=== PATIENT | female | born 1935 | race Caucasian/White ===

== ENCOUNTER 2021-02-16 11:41 | Emergency (ER) | payer MEDICARE, SELFPAY ==
--- NOTE | ~2021-02-16 | XR_ITS ---
EXAMINATION: XR chest 2V EXAM DATE: 02/16/2021 12:56 INDICATION: Fall, weakness and dizziness. TECHNIQUE: Frontal and lateral projections of the chest obtained and reviewed. There is no prior sheldon dy for comparison. FINDINGS: The lungs are clear. There are no pleural effusions. The cardiomediastinal silhouette is within normal limits. There is no pneumothorax suspected. There are mild bony degenerative changes. 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 IMPRESSION: Unremarkable chest x-ray exam. Reviewed, dictated and finalized at location A.
--- NOTE | ~2021-02-16 | CT_ITS ---
EXAMINATION: CT cervical spine wo con DATE: 02/16/2021 12:48 INDICATION: Status post fall. Neck pain. TECHNIQUE: Computed tomography (CT) of the cervical spine was performed without intravenous contrast. The dose-length product was 532 mGy-cm. Automated exposure control and iterative reconstruction tech nique were employed. COMPARISON: None FINDINGS: Vertebral body heights are maintained. There is degenerative anterolisthesis at C4-5, secon lashanda to facet hypertrophy. No acute fracture or traumatic malalignment. Odontoid process within deepthi l limits. There is advanced multilevel uncinate and facet hypertrophy. There is levocurvature of the cervical spine. There is carotid atherosclerosis. Craniovertebral junction is unremarkable. IMPRESSION: 1. No acute abnormality of the cervical spine. 2: Moderate cervical spondylosis. Reviewed, dictated and finalized at location B.
--- NOTE | ~2021-02-16 | CT_ITS ---
EXAMINATION: CT brain wo con DATE: 02/16/2021 12:48 INDICATION: Head injury. TECHNIQUE: Computed tomography (CT) of the head was performed without intravenous contrast. The mA wa s adjusted according to patient size. Iterative reconstruction technique was employed. The dose-lengt h product was 605.33 mGy-cm. COMPARISON: None FINDINGS: There is no intracranial hemorrhage, acute infarction, or abnormal intracranial mass lesion . The ventricles are normal in size. The paranasal sinuses are clear. The orbits are normal. There is a trace left mastoid effusion. IMPRESSION: 1. Normal brain. Reviewed, dictated and finalized at location A. IMPRESSION: 1. Normal brain.
--- NOTE | 2021-02-16 11:50 | ECG_ITS ---
Measurements Intervals [place] Rate: 78 P: 78 IA: 129 QRS: 13 QRSD: 93 T: 81 QT: 379 QTc: 434 Interpretive Statements SINUS RHYTHM WITH MARKED SINUS ARRHYTHMIA ATRIAL PREMATURE COMPLEX INCOMPLETE RIGHT BUNDLE BRANCH BLOCK LEFT VENTRICULAR HYPERTROPHY WITH ST-T CHANGE NONSPECIFIC ST & T-WAVE ABNORMALITY- HIGH LATERAL LEADS BASELINE ARTIFACT- II, III, AVR, AVF, V1, V3-V6 BORDERLINE ECG Electronically Signed On 02-16-2021 21:01:02 CDT by Endy Mcintosh D.O.
[2021-02-16 11:51] VITALS: BP 177/98; PULSE 76; RESP 19; TEMP 37.1; O2SAT 98
[2021-02-16 11:59] VITALS: PULSE 73
[2021-02-16 12:07] LABS: Basophils Percent Auto 0.3 % (0.2-1.2); Eosinophils Absolute Auto 0.1 K/mm3 (0-0.3); Eosinophils Percent Auto 0.7 % (0-4.4); Hematocrit 43.5 % (37.0-47.0); Hemoglobin 14.4 g/dL (12.0-15.0); Immature Granulocyte Absolute 0.03 K/mm3 (0.00-0.031); Immature Granulocyte Percent A 0.3 % (0-0.5); Lymphocytes Absolute Auto 2.08 K/mm3 (0.9-3.2); Lymphocytes Percent Auto 22.8 % (18.3-44.2); Mean Corpuscular HGB Conc 33.1 g/dl (32-36); Mean Corpuscular Hemoglobin 28.9 pg (26-34); Mean Corpuscular Volume 87.2 fl (80-100); Mean Platelet Volume 10.4 fl (7.4-10.4); Monocytes Absolute Auto 0.7 K/mm3 (0.1-0.6); Monocytes Percent Auto 7.4 % (2.6-8.5); Neutrophils Absolute Auto 6.2 K/mm3 (1.3-6.7); Neutrophils Percent Auto 68.5 % (45.5-73.1); Platelet Count Result 255 k/mm3 (150-375); Red Blood Count 4.99 M/mm3 (4.2-5.4); Red Cell Distribution Width 13.2 % (11.5-14.5); White Blood Count 9.1 K/mm3 (4.5-10.0)
[2021-02-16 12:23] LABS: Alanine Aminotransferase 22 U/L (4-35); Albumin Level 4.5 g/dL (3.5-5.1); Alkaline Phosphatase 78 U/L (38-126); Anion Gap 12 mmol/L (8-16); Aspartate Amino Transferase 46 U/L (14-36); Bilirubin,Total 1.8 mg/dL (0.2-1.3); Blood Urea Nitrogen 19 mg/dL (7-17); Calcium 10.1 mg/dL (8.4-10.2); Carbon Dioxide 25 mmol/L (22-30); Chloride 103 mmol/L (98-107); Estimated CRCL calculation 39 ml/min; Estimated Glomerular Filt Rate 47; Glucose 125 mg/dL (65-105); Sodium 140 mmol/L (137-145)
[2021-02-16 12:30] LABS: Glucose Point of Care 123 mg/dl (65-105)
[2021-02-16 12:52] LABS: Add Urine Microscopic? YES; Appearance Urine Cloudy (Clear); Bacteria Urine 4+ /hpf; Bilirubin Urine Negative (Negative); Blood Urine 1+ (Negative); Color Urine Amber (Yellow); Glucose Urine UA Negative (Negative); Ketones Urine Negative (Negative); Leukocyte Esterase Ur 2+ LEU/UL (Negative); Mucus Urine Rare /lpf; Nitrate Urine Negative (Negative); Protein Urine 2+ mg/dL (Negative); Specific Grav Ur 1.024 (1.001-1.035); Squamous Epithelial Cell Urine Many /hpf (Few); WBC Urine >75 /hpf
--- NOTE | 2021-02-16 12:52 | PC.NURSE ---
Pt to CT scan via stretcher.
--- NOTE | 2021-02-16 13:15 | ED.GENADULT ---
HPI - General Adult General Chief complaint: Weakness Stated complaint: dizzy, fall Time Seen by Provider: 02/16/21 11:58 Source: patient and family Mode of arrival: ambulatory Limitations: no limitations History of Present Illness HPI narrative: Patient is 85 years old white female presented to the ED with the chief complaint of weakness for 2 months, dizzy spells over the last 3 weeks which is triggered by head movement or body movement, spinning, associated with intermittent nausea,. Last the spell was yesterday while walking going to the bathroom, ended up on the floor, no loss of consciousness, occipital laceration, did not go to the hospital at that time. Patient lives with 2 sons, her daughter brought her to the emergency room for further evaluation. Currently patient is asymptomatic. History of hypertension, hyperlipidemia, does not take blood thinners or even aspirin. Unknown last tetanus shot. Blood pressure on arrival to the emergency room 177/98 when I went see the patient in the room was 210/107. Patient still asymptomatic. Related Data Allergies Allergy/AdvReac Type Severity Reaction Status Date / Time No Known Allergies Allergy Mild Verified 02/16/21 11:59 Review of Systems Review of Systems: Narrative: CONSTITUTIONAL: Denies fever, chills, or sweats. EYES: Denies visual changes, redness, or discharge. ENT: Denies rhinorrhea, congestion, sore throat, or otalgia. CARDIOVASCULAR: Denies chest pain, palpitations, or edema. RESPIRATORY: Denies cough or dyspnea. GASTROINTESTINAL: Denies abdominal pain, nausea, vomiting, or diarrhea. GENITOURINARY: Denies dysuria or hematuria. SKIN: Denies rash or itching. MUSCULOSKELETAL: Denies back pain, joint pain, or myalgia. NEUROLOGIC: Denies headache, numbness, or weakness. PSYCHIATRIC: Denies anxiety or depression. [facility] Past Medical History Medical History (Updated 02/16/21 @ 15:56 by Blanca Zelaya MD) Hyperglycemia Hypertension Family History Family History Father Family history of tuberculosis, Onset Age: 52 Mother Family history of kidney disease, Onset Age: 49 Social History Social History Smoking status: Never smoker Alcohol intake: never Gender identity (if verbalized by the patient): Female Exam Narrative: Exam Narrative: General appearance: Well-developed, well-nourished Skin: Normal color Head: Normocephalic,, healing occipital laceration 1 and half centimeter, not contaminated, no active bleeding Eyes: Clear conjunctiva ENT: Oropharynx normal, ears normal, nose normal Neck: Supple, nontender Chest and respiratory: Airway patent, no respiratory distress, no accessory muscle use Heart: Regular rate/rhythm Abdomen: Soft, nontender, no organomegaly, quiet bowel sounds Vascular: Normal peripheral pulses, normal capillary refill. Musculoskeletal: Normal range of motion, nontender back Neurologic: Alert and oriented ?3, [employer] is normal as tested, no gross motor deficit Course Course Emergency Course: Stable Vital Signs Vital signs: Vital Signs Temperature 37.1 C 02/16/21 11:51 Pulse Rate 76 02/16/21 11:51 Respiratory Rate 19 02/16/21 11:51 Blood Pressure 177/98 H 02/16/21 11:51 Pulse Oximetry 98 02/16/21 11:51 Temperature 37.1 C 02/16/21 11:51 Pulse Rate 65 02/16/21 15:19 Respiratory Rate 12 02/16/21 15:19 Blood Pressure 126/50 L 02/16/21 15:19 Pulse Oximetry 97 02/16/21 15:19 Medical Decision Making MDM Narrative Medical decision making narrative: Patient presents with general weakness for the las
[2021-02-16] MEDS: LABETALOL HCL INJ 100 MG/20 ML VIAL 20 MG IV PUSH (13:34)
[2021-02-16] MEDS: diazePAM INJ (*CRX) 10 MG/2 ML SYRINGE 5 MG IV PUSH (13:34)
[2021-02-16] MEDS: TETANUS,DIPHTHERIA,AC PERTUSSIS ADULT (0.5 ML) BOOSTRIX IM (13:35)
[2021-02-16 13:40] VITALS: BP 161/64; PULSE 82; RESP 18; O2SAT 95
[2021-02-16 13:46] LABS: Basophils Percent Auto 0.5 % (0.2-1.2); Eosinophils Percent Auto 0.2 % (0-4.4); Hematocrit 43.5 % (37.0-47.0); Hemoglobin 14.4 g/dL (12.0-15.0); Immature Granulocyte Absolute 0.03 K/mm3 (0.00-0.031); Immature Granulocyte Percent A 0.3 % (0-0.5); Lymphocytes Absolute Auto 1.69 K/mm3 (0.9-3.2); Lymphocytes Percent Auto 19.7 % (18.3-44.2); Mean Corpuscular HGB Conc 33.1 g/dl (32-36); Mean Corpuscular Hemoglobin 28.5 pg (26-34); Mean Corpuscular Volume 86.1 fl (80-100); Mean Platelet Volume 10.6 fl (7.4-10.4); Monocytes Absolute Auto 0.5 K/mm3 (0.1-0.6); Monocytes Percent Auto 6.3 % (2.6-8.5); Neutrophils Absolute Auto 6.3 K/mm3 (1.3-6.7); Platelet Count Result 241 k/mm3 (150-375); Red Blood Count 5.05 M/mm3 (4.2-5.4); Red Cell Distribution Width 13.1 % (11.5-14.5); White Blood Count 8.6 K/mm3 (4.5-10.0)
[2021-02-16 13:57] LABS: Prothrombin Time 13.6 Seconds (11.1-14.7)
[2021-02-16 13:58] LABS: Partial Thromboplastin Time 27.7 SECONDS (22.3-36.8)
[2021-02-16 15:19] VITALS: BP 126/50; PULSE 65; RESP 12; O2SAT 97
[2021-02-16 16:12] VITALS: BP 150/83; PULSE 60; RESP 16; O2SAT 100
[2021-02-16 17:06] VITALS: BP 140/89; PULSE 64; RESP 14; O2SAT 100
== END 2021-02-16 17:22 | disposition home or self-care (01) ==
PROVIDERS: Emergency Medicine; Emergency Provider Emergency Medicine; PCP Emergency Medicine
DX: N39.0 Urinary tract infection, site not specified (principal); R42 Dizziness and giddiness; S01.01XA Laceration without foreign body of scalp, initial encounter; I10 Essential (primary) hypertension; E78.5 Hyperlipidemia, unspecified; M47.812 Spondylosis without myelopathy or radiculopathy, cervical region; I49.1 Atrial premature depolarization; I45.10 Unspecified right bundle-branch block; I51.7 Cardiomegaly; R94.31 Abnormal electrocardiogram [ECG] [EKG]
CPT/HCPCS: 36415; 51701; 70450; 71046; 72125; 80053; 81001; 82948; 84484; 85025; 85610; 85730; 87086; 87088; 90471; 90715; 93005; 96365; 96375; 99284; J0696; J3360